=== PATIENT | female | born 1935 | race Caucasian/White ===

== ENCOUNTER 2019-01-16 22:08 | Emergency (ER) | payer OTHER ==
[~2019-01-16] VITALS: Ht 160 cm; Wt 70.3 kg
[2019-01-16] MEDS ORDERED: COLACE100 MG PO (22:22)
[2019-01-16] MEDS ORDERED: TYLENOL325 M1 PO (22:22)
[2019-01-16] MEDS ORDERED: VITAMIN B122500 MC1 PO (22:23)
[2019-01-16] MEDS ORDERED: CARDIZEM CD120 MG PO (22:23)
[2019-01-16] MEDS ORDERED: DUREZOL5 ML OPHTHALMIC (22:24)
[2019-01-16] MEDS ORDERED: LASIX 20 MG TAB20 MG PO (22:24)
[2019-01-16] MEDS ORDERED: CENTRUM SILVER1 EAC4 PO (22:24)
[2019-01-16] MEDS ORDERED: SYNTHROID75 MCG PO (22:25)
[2019-01-16] MEDS ORDERED: MELATONIN3 MG PO (22:26)
[2019-01-16] MEDS ORDERED: CETAPHIL226 GM TOP (22:26)
[2019-01-16] MEDS ORDERED: VITAMIN C + RO500 MG PO (22:26)
[2019-01-16] MEDS ORDERED: VITAMIN D3400 UNIT PO (22:27)
[2019-01-16] MEDS ORDERED: PREPARATION H1 EAC5 RECTAL (22:28)
[2019-01-16] MEDS ORDERED: RIVASTIGMINE6 MG PO (22:28)
[2019-01-16 22:30] LABS: HEMATOCRIT 35.4 % (37.0-47.0); HEMOGLOBIN 11.7 gm/dL (12.0-15.0); MCH 31.5 pg (26.0-34.0); MCHC 33.2 g/dL (28.0-37.0); MCV 94.9 fL (80.0-100.0); PLATELET COUNT 202 thou/uL (150-400); RBC 3.73 mil/uL (4.20-5.00); RDW 14.6 % (10.5-14.5); WBC 5.5 thou/uL (4.0-11.0)
[2019-01-16] MEDS ORDERED: ONDANSETRON HCL4 M2 PO (22:30)
[2019-01-16] MEDS ORDERED: LEXAPRO20 MG PO (22:31)
[2019-01-16] MEDS ORDERED: LOPERAMIDE 2 MG2 M1 PO (22:31)
[2019-01-16] MEDS ORDERED: QUETIAPINE FUM100 MG PO (22:32)
[2019-01-16 22:42] LABS: ANION GAP 11 mmol/L (7-16); BUN 25 mg/dL (7-18); CHLORIDE 104 mmol/L (98-107); CO2 27 mmol/L (21-32); CREATININE 1.3 mg/dL (0.6-1.0); GLUCOSE 131 mg/dL (74-106); POTASSIUM 3.5 mmol/L (3.5-5.1); SODIUM 142 mmol/L (136-145)
[2019-01-16 22:52] LABS: MAGNESIUM 1.8 mg/dL (1.8-2.4); TROPONIN-I <0.06 ng/mL (<0.06)
[2019-01-16 23:06] LABS: URINE BILIRUBIN 1+ (Negative); URINE BLOOD TRACE (Negative); URINE CLARITY SL CLOUDY; URINE COLOR YELLOW; URINE GLUCOSE-RANDOM* NEGATIVE (Negative); URINE KETONES TRACE (Negative); URINE LEUKOCYTES-REFLEX NEGATIVE (Negative); URINE NITRITE-REFLEX NEGATIVE (Negative); URINE PROTEIN (DIPSTICK) 1+ (Negative); URINE SPECIFIC GRAVITY >= 1.030 (1.005-1.035)
[2019-01-16 23:16] LABS: SQUAMOUS 0-3 Few /LPF (0-3); URINE RBC 3-10 Few /HPF (0-2); URINE WBC-REFLEX 0-5 Rare /HPF (0-5)
[2019-01-16 23:17] LABS: AMORPHOUS URATES Few /LPF (None Seen); BACTERIA-REFLEX 1-9 Few /HPF (None Seen); COARSE GRANULAR CASTS 0-3 Few /LPF (None Seen); FINE GRANULAR CASTS 0-3 Few /LPF (None Seen); HYALINE CASTS 4-10 Moderate /LPF (None Seen); MUCUS 4-6 Moderate strn/LPF (None Seen)
[2019-01-16 23:44] LABS: PLATELET ESTIMATE NORMAL
[2019-01-17 00:27] VITALS: BP 113/47
--- NOTE | 2019-01-17 16:13 | EKG ---
[place] [address] [facility] [place] [address] ELECTROCARDIOGRAM REPORT Name: EMMETT STALLWORTH Room #: DEP FEDERICA Kearney#: [id number] ������������������ Admission: 01/16/19 ������������������ Attend Phys: Discharge: 01/17/19 ������������������ Date of : 35 Report #: [id number] ����������������������������������������������������������������� [id number] THIS REPORT FOR: //name// [facility] ED Test Date: 2019-01-16 Test Time: 22:15:59 Pat Name: EMMETT STALLWORTH Department: Room: Gender: F [employer]: gloria : 1935 Requested By: Phan Morris Order Number: [id number] MD: Chucho Landeros Measurements Intervals [place] Rate: 60 P: CT: QRS: -28 QRSD: 93 T: 69 QT: 464 QTc: 464 Interpretive Statements Sinus rhythm Abnormal R-wave progression, early transition Inferior infarct, old No previous ECG available for comparison Electronically Signed On 01-17-2019 16:12:49 CDT by Chucho Landeros [email or web address] ��������������������������������������������� <ELECTRONICALLY SIGNED> ���������������������������������������� By: Chucho Landeros MD ��������������������������������������������� 01/17/19 1612 2215 2215 Chucho Landeros MD /EPI
== END 2019-01-17 02:00 ==
LOC: ER 22:08
PROVIDERS: Emergency Medicine
DX: I95.1 Orthostatic hypotension (principal); R55 Syncope and collapse; Z88.8 Allergy status to other drugs, medicaments and biological substances; Z91.013 Allergy to seafood